=== PATIENT | female | born 1970 ===

== ENCOUNTER 2023-08-08 07:41 | Day surgery (SDC) | payer OTHER ==
[~2023-08-08 07:41] MED LIST: COZAAR50 MG PO
== END 2023-08-08 19:20 | disposition home or self-care (01) ==
LOC: CIR.AMB 07:41
PROVIDERS: ATTEND Colon & Rectal Surgery
DX: K64.2 Third degree hemorrhoids (principal); K64.4 Residual hemorrhoidal skin tags; K64.8 Other hemorrhoids; Z88.0 Allergy status to penicillin; Z20.822 Contact with and (suspected) exposure to COVID-19